=== PATIENT | male | born 1990 | race Asian ===

== ENCOUNTER 2020-01-06 06:27 | Emergency (ER) | payer MEDICAID ==
[~2020-01-06] VITALS: Ht 172.7 cm; Wt 81.6 kg
[2020-01-06 06:27] VITALS: BP_SYST 139
[2020-01-06 07:01] VITALS: BP_SYST 139
== END 2020-01-06 07:00 ==
LOC: SED 06:27
DX: S00.83XA Contusion of other part of head, initial encounter (principal); F12.90 Cannabis use, unspecified, uncomplicated; F17.200 Nicotine dependence, unspecified, uncomplicated; W22.01XA Walked into wall, initial encounter; Y93.89 Activity, other specified; Y92.89 Other specified places as the place of occurrence of the external cause; Y99.8 Other external cause status
CPT/HCPCS: 99283